=== PATIENT | female | born 1995 | race Caucasian/White ===

== ENCOUNTER 2020-10-06 12:56 | Emergency (ER) | payer OTHER ==
[~2020-10-06 12:56] MED LIST: PRENATAL VITAM1 EAC3 PO; REGLAN10 MG PO; UNISOM25 MG PO; VITAMIN B-625 MG PO
[2020-10-06 14:01] LABS: HEMOGLOBIN 11.8 gm/dl (12.3-15.3); RED BLOOD COUNT 3.89 M/UL (4.00-5.10); WHITE BLOOD COUNT 10.2 K/UL (4.5-11.0)
[2020-10-06 14:43] LABS: BUN/CREATININE RATIO 11 (0-10)
== END 2020-10-06 15:33 | disposition home or self-care (01) ==
LOC: ER1 12:56
PROVIDERS: Emergency Medicine
DX: O26.852 Spotting complicating pregnancy, second trimester (principal); O99.332 Smoking (tobacco) complicating pregnancy, second trimester; F17.200 Nicotine dependence, unspecified, uncomplicated; Z3A.17 17 weeks gestation of pregnancy
CPT/HCPCS: 80053; 81001; 83690; 84703; 85025; 99284

== ENCOUNTER 2020-10-11 11:53 | Emergency (ER) | payer OTHER ==
[2020-10-12] MEDS ORDERED: BACTRIM DS TAB1 EACH PO ×2 (15:52→16:00)
== END 2020-10-11 12:27 | disposition home or self-care (01) ==
LOC: ER1 11:53
DX: O99.891 Other specified diseases and conditions complicating pregnancy (principal); R10.9 Unspecified abdominal pain; R30.0 Dysuria; F17.200 Nicotine dependence, unspecified, uncomplicated; Z3A.18 18 weeks gestation of pregnancy
CPT/HCPCS: 81001

== ENCOUNTER 2020-10-11 17:17 | Observation (INO) | payer OTHER ==
[2020-10-11 18:37] LABS: HEMOGLOBIN 11.8 gm/dl (12.3-15.3); RED BLOOD COUNT 3.9 M/UL (4.00-5.10); WHITE BLOOD COUNT 16.5 K/UL (4.5-11.0)
[2020-10-11 19:03] LABS: BUN/CREATININE RATIO 15 (0-10)
[2020-10-12 08:23] LABS: HEMOGLOBIN 10.5 gm/dl (12.3-15.3); RED BLOOD COUNT 3.45 M/UL (4.00-5.10)
[2020-10-12] MEDS ORDERED: BACTRIM DS TAB1 EACH PO ×2 (15:52→16:00)
== END 2020-10-12 16:25 | disposition home or self-care (01) ==
LOC: ER1 17:17 → CDU 19:18 → OB 21:30
PROVIDERS: Emergency Medicine; Physician Assistant; ADMIT Obstetrics & Gynecology
DX: O23.02 Infections of kidney in pregnancy, second trimester (principal); O99.012 Anemia complicating pregnancy, second trimester; D64.9 Anemia, unspecified; O99.332 Smoking (tobacco) complicating pregnancy, second trimester; F17.210 Nicotine dependence, cigarettes, uncomplicated; Z88.0 Allergy status to penicillin; Z79.82 Long term (current) use of aspirin; Z79.899 Other long term (current) drug therapy; Z3A.18 18 weeks gestation of pregnancy; Z20.822 Contact with and (suspected) exposure to COVID-19
CPT/HCPCS: 36415; 80053; 80307; 81001; 83605; 85025; 87040; 87077; 87086; 87186; 96374; 96376; 99284; G0378; J0696; J7030; U0002

== ENCOUNTER 2021-10-17 20:45 | Emergency (ER) | payer OTHER ==
[~2021-10-17 20:45] MED LIST changes: +BACTRIM DS TAB1 EACH PO
[2021-10-17 21:12] LABS: HEMOGLOBIN 12.7 gm/dl (12.3-15.3); RED BLOOD COUNT 4.37 M/UL (4.00-5.10); WHITE BLOOD COUNT 9.4 K/UL (4.5-11.0)
[2021-10-17 21:44] LABS: BUN/CREATININE RATIO 19 (0-10)
[2021-10-17] MEDS ORDERED: ZOFRAN ODT 4 MG4 MG SL (23:32)
== END 2021-10-17 23:04 | disposition home or self-care (01) ==
LOC: ER1 20:45
PROVIDERS: Family Medicine
DX: H61.22 Impacted cerumen, left ear (principal); R11.2 Nausea with vomiting, unspecified; R53.1 Weakness; Z20.822 Contact with and (suspected) exposure to COVID-19; R19.7 Diarrhea, unspecified; R10.811 Right upper quadrant abdominal tenderness
CPT/HCPCS: 0240U; 80053; 81001; 84703; 85025; 87081; 87880; 99284